=== PATIENT | female | born 1975 | race African-American/Black ===

== ENCOUNTER → 2018-12-06 | Outpatient (CLI) | payer OTHER ==
--- NOTE | 2018-12-07 09:28 | RAD ---
DATE: 12/07/2018. EXAM: MAMMO [facility] SCREENING BILATERAL. HISTORY: Routine mammographic screening. COMPARISON: 05/22/2015. This study was interpreted with the benefit of Computerized Aided Detection (CAD). FINDINGS: Breast Density: DENSE The breast parenchyma is dense, which could reduce the sensitivity of mammography. Breast parenchyma level density D.. There is a developing density medially and in the on the left within the posterior 3rd. See annotations. On the right, a small nodule inferiorly has a stable correlate. Scattered calcifications are benign. There is no suspicious finding on the right. BI-RADS CATEGORY: 0 INCOMPLETE: NEEDS ADDITIONAL IMAGING EVALUATION AND/OR PRIOR MAMMOGRAMS FOR COMPARISON.. RECOMMENDED FOLLOW-UP: ADD ADDITIONAL IMAGING. 1. Spot compression of a developing density inferomedially on the left with sonography if necessary. PQRS compliance statement: Patient information was entered into a reminder system with a target due date (now) for the next mammogram. Mammography is a sensitive method for finding small breast cancers, but it does not detect them all and is not a substitute for careful clinical examination. A negative mammogram does not negate a clinically suspicious finding and should not result in delay in biopsying a clinically suspicious abnormality. "Our facility is accredited by the [employer] Mammography [employer]."
== END | disposition home or self-care (01) ==
LOC: MAMMO 10:57
PROVIDERS: ATTEND Registered Nurse
DX: Z12.31 Encounter for screening mammogram for malignant neoplasm of breast (principal); N63.10 Unspecified lump in the right breast, unspecified quadrant; N64.89 Other specified disorders of breast
CPT/HCPCS: 77063; 77067

== ENCOUNTER → 2018-12-26 | Outpatient (CLI) | payer OTHER ==
--- NOTE | 2018-12-29 14:47 | RAD ---
DATE: 12/26/2018 2:00 PM EXAM: DIGITAL DIAGNOSTIC LT, BREAST LEFT HISTORY: Further evaluation of an abnormality seen on prior screening mammogram COMPARISON: 12/06/2018 Spot compression CC, MLO and full field MLO views of the left breast were obtained. This study was interpreted with the benefit of Computerized Aided Detection (CAD). Breast Density: The breast parenchyma is heterogeneously dense, which could reduce sensitivity of mammography. Breast parenchyma level C. FINDINGS: The masslike density in the posterior depth in the lateral, slightly inferior left breast is essentially stable, and better delineated on the spot compression views. Therefore this was further evaluated with breast ultrasound. Left breast ultrasound: Dedicated left breast ultrasound was performed in the left breast from the 6:00-9:00 position. At the 7:00 position approximately 5 cm from the nipple a 0.2 cm hypoechoic nodule is seen. This has slightly irregular margins. At the 8:00 position approximately 7 cm from the nipple a 0.4 x 0.5 x 0.3 cm hypoechoic nodule is seen in a parallel orientation, with mild gentle lobulations. IMPRESSION: Small left breast masses, findings for which short-term imaging follow-up is advised. BI-RADS CATEGORY: 3 PROBABLY BENIGN FINDING(S)-SHORT INTERVAL FOLLOW-UP SUGGESTED RECOMMENDED FOLLOW-UP: 6M 6 MONTH FOLLOW-UP. Scattered mammographic and sonographic evaluation in 6 months is recommended. PQRS compliance statement: Patient information was entered into a reminder system with a target due date 06/28/2020 for the next mammogram. Mammography is a sensitive method for finding small breast cancers, but it does not detect them all and is not a substitute for careful clinical examination. A negative mammogram does not negate a clinically suspicious finding and should not result in delay in biopsying a clinically suspicious abnormality. "Our facility is accredited by the [employer] Mammography [employer]." Addendum: Upon further review, the hypoechoic mass at the 8:00 position, 7 cm from the nipple is mildly irregular and solid in appearance and therefore biopsy is recommended. BI-RADS CATEGORY: 4A - 4 SUSPICIOUS ABNORMALITY- BIOPSY SHOULD BE CONSIDERED RECOMMENDED FOLLOW-UP: BIO BIOPSY RECOMMENDED. Mammography is a sensitive method for finding small breast cancers, but it does not detect them all and is not a substitute for careful clinical examination. A negative mammogram does not negate a clinically suspicious finding and should not result in delay in biopsying a clinically suspicious abnormality. "Our facility is accredited by the [employer] Mammography [employer]." The updated recommendation was called to NING Mcdermott at 12/27/2018 4:20 PM. [email or web address]
== END | disposition home or self-care (01) ==
LOC: MAMMO 09:54
PROVIDERS: ATTEND Registered Nurse
DX: N63.24 Unspecified lump in the left breast, lower inner quadrant (principal)
CPT/HCPCS: 76641; 77065